=== PATIENT | male | born 1950 | race Caucasian/White ===

== ENCOUNTER 2022-05-01 16:49 | Outpatient (CLI) | payer MEDICARE, SELFPAY ==
--- NOTE | 2022-05-01 17:04 | CT_ITS ---
WS: [id number] CT NECK TECHNIQUE: Contrast-enhanced CT of the neck with coronal and sagittal reformatted images. CLINICAL INFORMATION: LOCALIZED SWELLING, MASS LUMP NECK COMPARISON: None. DLP: 281.[address] scans at [facility] use at least one of these dose optimization techniques: automated e xposure control; mA and/or kV adjustment per patient size (includes targeted exams where dose is matc hed to clinical indication); or iterative reconstruction. FINDINGS: Peripheral enhancing centrally low attenuation mass deep to the palpable marker LEFT neck. This is de ep to the platysma. This is posterior to the angle of the mandible anterior to the sternocleidomastoi d and lateral to the submandibular gland. Findings suspicious for primary head and neck neoplasm or m etastatic disease. Suspected central necrosis. Peripheral enhancing mass measures 2.9 x 2.5 x 3.3 cm AP by transverse by craniocaudal. Superiorly this abuts the parotid gland and may originate from the inferior parotid glands. Mild surrounding induration. Infection/abscess is less likely. Parotid glands are normal. Normal submandibular glands. Normal posterior nasopharynx. Normal paraphar yngeal fat. Mild mucosal thickening ethmoid air cells. Mastoid air cells well aerated. No evidence of supraglottic or glottic mass. Mild spondylitic changes cervical spine. CT/CT neck w con* [id number] IMPRESSION: 1. 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 Recomm end ENT consultation for further evaluation. PET/CT could be performed to evalu ate for occult primary/metastatic disease. 2. Above-described peripherally enhancing mass abuts the parotid gland along t he superior margin and may be exophytic from the parotid gland. 3. Otherwise no cervical lymphadenopathy. 4. No evidence of supraglottic or glottic mass. Tongue base appears normal. 5. Mild mucosal thickening in the ethmoid air cells partially visualized. Mast oid air cells well aerated aerated. 6. No other acute findings.
[2022-05-01 17:30] LABS: Blood Urea Nitrogen 14 mg/dL (8-23)
[2022-05-01] MEDS: iohexol 350 mg/mL 100 mL Btl IV (17:46)
== END 2022-05-01 16:50 | disposition home or self-care (01) ==
LOC: RAD 16:51
PROVIDERS: PCP Nurse Practitioner Family; Visit Provider Specialist
DX: R22.1 Localized swelling, mass and lump, neck (principal)
CPT/HCPCS: 70491; 82565; 84520